=== PATIENT | female | born 1970 | race Caucasian/White ===

== ENCOUNTER → 2023-12-09 | Outpatient (CLI) | payer MEDICAID, SELFPAY ==
--- NOTE | 2023-12-09 11:28 | RAD_ITS ---
STUDY: X-RAY - CERVICAL SPINE REASON FOR EXAM: Female, 53 years old. neck pain TECHNIQUE: 4 view(s) of the cervical spine were obtained. COMPARISON: None FINDINGS: Normal anterior atlantoaxial articulation. Normal odontoid process. Slight anterior subluxation C4-5. Normal cervical lordosis. Normal vertebral bodies and endplates. There is multi-level degenerative disc disease with multilevel disc space narrowing. Normal visualized intervertebral neuroforamina. The soft tissue structures are unremarkable. RAD/Cerv Spine 2 or 3 Views IMPRESSION: Multilevel degenerative disc disease and slight anterior subluxation C4-5. Electronically Signed: Isaac Jenkins MD at 23:54 EST ,
[2023-12-09 16:05] LABS: Hematocrit 41.1 % (37-47); Mean Corp Hgb Conc 31.6 g/dL (32-36); Mean Corpuscular Hgb 28.4 pg (27.0-32.0); Mean Corpuscular Volume 89.7 fL (81-99); Mean Platelet Vol. 10.7 fl (6.2-12.0); Platelet Count 193 K/mm3 (150-450); RBC Distribution Width CV 13.7 % (11.6-14.6); RBC Distribution Width SD 45.1 fl (35.1-43.9); Red Blood Count 4.58 M/mm3 (4.2-5.4); White Blood Count 8.9 K/mm3 (4.4-11.0)
[2023-12-09 16:13] LABS: Vitamin B12 275 pg/mL (211-911)
[2023-12-09 18:28] LABS: AST(SGOT) 21 U/L (15-37); Alanine Aminotransfer ALT/SGPT 18 U/L (13-56); Albumin, Serum 3.7 g/dL (3.2-5.0); Alkaline Phosphatase 80 U/L (45-117); Anion Gap 5 (5-15); BUN 10 mg/dL (7-18); BUN/Creat Ratio 11.9 RATIO (10-20); Calcium,Total 9.2 mg/dL (8.5-10.1); Chloride 111 mmol/L (98-107); Creatinine, Serum 0.84 mg/dL (0.55-1.02); EST Glomerular Filtration Rate 75 mL/min (>60); Est Glom Filt Rate - Afr Amer 91 mL/min (>60); Folates, (Folic Acid) > 100.00 ng/mL (3.1-55.4); Globulin 3.7 g/dL (2.2-4.2); Glucose 97 mg/dL (74-106); Potassium 3.9 mmol/L (3.5-5.1); Protein, Total 7.4 g/dL (6.4-8.2); Sodium Level 139 mmol/L (136-145); Thyroid Stim Hormone (TSH) 0.74 uIU/mL (0.358-3.74)
[2023-12-12 12:09] LABS: Vitamin D 1,25-Dihydroxy 60.3 pg/mL (24.8-81.5)
[2023-12-16 10:08] LABS: Vitamin B1, Thiamine 92.5 nmol/L (66.5-200.0)
== END | disposition home or self-care (01) ==
PROVIDERS: Referring Provider Psychiatry & Neurology Neurology; Visit Provider Psychiatry & Neurology Neurology
DX: I10 Essential (primary) hypertension (principal); M54.2 Cervicalgia; R53.83 Other fatigue
CPT/HCPCS: 36415; 72040; 80053; 82607; 82652; 82746; 84425; 84443; 85027

== ENCOUNTER → 2023-12-26 | Outpatient (CLI) | payer OTHER, SELFPAY ==
--- NOTE | 2023-12-26 16:31 | MRI_ITS ---
HISTORY: MIGRAINE WITH AURA, NECK PAIN. TECHNIQUE: Multiplanar and multisequence MR images of the brain were obtained without contrast. 281 images. COMPARISON: None. FINDINGS: BRAIN PARENCHYMA: No significant signal abnormality in the brain parenchyma. No abnormal focus of restricted diffusion to suggest acute infarct. No acute intracranial hemorrhage identified. CSF SPACES: Cerebral ventricles, cortical sulci, and other extra-axial CSF spaces within normal limits in size for age. No significant midline shift or other mass effect.No extra-axial fluid collection. VASCULAR SYSTEM: Major intracranial flow voids are maintained. PARANASAL SINUSES AND MASTOID AIR CELLS: Minimal left maxillary sinus mucosal thickening without significant air fluid levels. ORBITS: Symmetric contents. MRI/Brain without Contrast IMPRESSION: Unremarkable examination. No evidence for significant signal abnormality in the brain. Electronically Signed: Ivonne Villavicencio MD at 14:06 EST ,
--- OUTSIDE RECORDS SUMMARY | 2023-12-26 20:27 | XMS RPT_ITS | CCD ---
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 Name Role Phone PriyanknoeJuan Unavailable Unavailable Payette, Tri March Unavailable Unavailab Everton Owen Unavailable Unavailable Everton Dennis B Unavailable Unavailable Payette, Tri March Unavailable Unavailab Sanjeev Enriquez Unavailable Unavailable Payette, Tri March Unavailable Unavailab Everton Owen Unavailable Unavailable Everton Dennis B Unavailable Unavailable Payette, Tri March Unavailable Unavailab Sanjeev Enriquez R Unavailable Unavailable Payette, Tri March Unavailable Unavailab Sanjeev Enriquez Unavailable Unavailable Payette, Tri March Unavailable Unavailab Sanjeev Enriquez R Unavailable Unavailable Payette, Tri March Unavailable Unavailab Sanjeev Enriquez R Unavailable Unavailable Sanjeev Vega R Unavailable Unavailable Sanjeev Vega R Unavailable Unavailable Payette, Tri March Unavailable Unavailab Shaquille Guan Unavailable Unavailab le Payette, Tri March Unavailable Unavailab EVERTON Owen Unavailable Unavailable NO FAMILY PHYSICIAN, 837 Unavailable Unavail able EVERTON DENNIS Unavailable Unavailable NO FAMILY PHYSICIAN, 837 Unavailable Unavail able ALEXANDRO WEINSTEIN Unavailable Unavailable NO, DOCTOR ON Consulting Unavailable NO, DOCTOR ON Referring Unavailable HAROON DOS SANTOS MD Admitting Unavailab HAROON Reilly MD Attending Unavailab HAROON Reilly MD Primary Care Unavailab Filippo Lynch Primary Care Provider CARRIE RUVALCABA Attending Unavaila ble POWIS, CARRIE KENIA Referring Unavaila ble FILIPPO CORRAL Primary Care Unavailable ELLISFILIPPO REAL Attending Unavailable FILIPPO CORRAL Referring Unavailable ELLISFILIPPO REAL Primary Care Unavailable Tri Richards Primary Care Provider FILIPPO CORRAL Primary Care Unavailable FILIPPO CORRAL Primary Care Unavailable POWIS, CARRIE KENIA Referring Unavaila ble POWIS, CARRIE KENIA Attending Unavaila ble FILIPPO CORRAL Primary Care Unavailable FILIPPO CORRAL Primary Care Unavailable FILIPPO CORRAL Primary Care Unavailable FILIPPO CORRAL Primary Care Unavailable PASTORINO, VERONICA SHAILESH Attending Unavaila ble PASTORINO, VERONICA SHAILESH Admitting Unavaila ble FILIPPO CORRAL Attending Unavailable TAYLOR GUTIERREZ Primary Care Unavailab le FILIPPO CORRAL Referring Unavailable FILIPPO CORRAL Primary Care Unavailable PASTORINO, VERONICA SHAILESH Attending Unavaila ble FILIPPO CORRAL Admitting Unavailable FILIPPO CORRAL Attending Unavailable FILIPPO CORRAL Primary Care Unavailable FILIPPO CORRAL Attending Unavailable FILIPPO CORRAL Primary Care Unavailable FILIPPO CORRAL Primary Care Unavailable PASTORINO, VERONICA SHAILESH Attending Unavaila ble POWIS, CARRIE K Attending Unavailable FILIPPO CORRAL Primary Care Unavailable FILIPPO CORRAL Referring Unavailable GAVI, CARRIE K Attending Unavailable FILIPPO CORRAL Primary Care Unavailable SELF, SELF Referring Unavailable GIFTY ARCOS Attending Unavailable RICKS DO~[id number], RICKS KRISTA H Prima ry Care Unavailable RICKS DO, KRISTA H Consulting Unavailab le HELMING DO, DR GOMEZ Attending Unavailab le HELMING DO, DR GOMEZ Admitting Unavailab le RICKS DO, KRISTA H Consulting Unavailab le HELMING DO, DR GOMEZ Consulting Unavailab le HELMING DO, DR GOMEZ Consulting Unavailab LEONIDES August MD Consulting Unavailable MINDA ESPINOZA, LEONIDES Aquino Consulting Unavailable RICKS DO~[id number], RICKS KRISTA H Prima ry Care Unavailable RICKS DO~[id number], RICKS KRISTA H Admit ting Unavailable RICKS DO~[id number], RICKS KRISTA H Atten ding Unavailable RICKS DO, KRISTA H Consulting Unavailab le RICKS DO, KRISTA H Consulting Unavailab onofre AVINA MD, NINI Dale Consulting Unavailable FABRICE ESPINOZA, NINI Dale Consulting Unavailable NONE, NONE Consulting Unavailable RICKS DO~[id number], [place] KRISTA H Prima ry Care Unavailable SONA DO~[id number], SONA LAQUITA Wellington Attending Unavailable SONA DO~[id number], SONA LAQUITA Wellington Admitting Unavailable NONE, NONE Consulting Unavailable SONA DO, LAQUITA N Consulting Unavailable SONA DO, LAQUITA Wellington Consulting Unavailable RICKS DO~[id number], [place] KRISTA H Admit ting Unavailable RICKS DO~[id number], [place] KRISTA H Atten ding Unavailable RICKS DO~[id number], [place] KRISTA H Prima ry Care Unavailable [place] DO, KRISTA H Consulting Unavailab le [place] DO, KRISTA H Consulting Unavailab le [place] DO~[id number], [place] KRISTA H Admit ting Unavailable RICKS DO~[id number], [place] KRISTA H Atten ding Unavailable RICKS DO~[id number], [place] KRISTA H Prima ry Care Unavailable [place] DO, KRISTA H Consulting Unavailab le [place] DO, KRISTA H Consulting Unavailab le [place] DO~[id number], [place] KRISTA H Admit ting Unavailable RICKS DO~[id number], [place] KRISTA H Atten ding Unavailable RICKS DO~[id number], [place] KRISTA H Prima ry Care Unavailable [place] DO, KRISTA H Consulting Unavailab le [place] DO, KRISTA H Consulting Unavailab onofre AVINA MD, NINI Dale Consulting Unavailable FABRICE ESPINOZA, NINI Dale Consulting Unavailable SONA DO~[id number], SONA LAQUITA Wellington Admitting Unavailable [place] DO~[id number], [place] KRISTA H Prima ry Care Unavailable RICKS DO, KRISTA H Consulting Unavailab le SONA DO~[id number], SONA LAQUITA Wellington Attending Unavailable RICKS DO, KRISTA Coffey Consulting Unavailab onofre LAMBERT MD, FINESSE Emanuel Consulting Unavailable FAUSTO ESPINOZA, FINESSE Emanuel Consulting Unavailable SONA DO, LAQUITA Wellington Consulting Unavailable SONA DO, LAQUITA Wellington Consulting Unavailable Allergies Allergy Classification Reported Allergen(s) Allergy Type Date of Onset Reaction(s) Facility (17 sources) codeine; Translations: [codeine] Drug Allergy 05-31-20 Unknown, GI Upset [facility] Repository (18 sources) Latex; Translations: [Latex] Propensity to adverse reactions (disorder) 05-31-20 16 Rash [facility] Repository (14 sources) Penicillins; Translations: [penicillins] Propensity to adverse reactions to drug (disorder) 04-25-20 [facility] Repository (1 source) sulfamethoxazole / trimethoprim; Translations: [Bactrim] Drug Allergy AOF [facility] Repository (1 source) Penicillin Drug Allergy [facility] Repository (12 sources) Sulfamethoxazole / Trimethoprim; Translations: [Unknown] Drug Allergy 06-06-20 [facility] (1 source) Amoxicillin Drug Allergy [facility] Repository Medications Current Medications Medication Drug Class(es) Dates Sig (Normalized) Sig (Original) acetaminophen 325 mg / oxyCODONE hydrochloride 5 mg oral tablet (1 source) Opioid Agonist Start: 09-22-2020 take 1 tablet by mouth every six hours as needed for pain oxyCODONE-acetamino phen (PERCOCET) 5-325 mg per tablet Indications: Chronic cholecystitis Take 1 (one) tablet by mouth every 6 (six) hours as needed for pain . 8 tablet 0 09/22/2020 Active docusate sodium 100 mg oral capsule (1 source) Start: 09-22-2020 End: 10-22-2020 take 1 capsule by mouth twice daily docusate sodium (COLACE) 100 MG capsule Take 1 (one) capsule (100 mg total) by mouth 2 (two) times a day . 60 capsule 0 09/22/2020 10/22/2020 Active ibuprofen 600 mg oral tablet (1 source) Nonsteroidal Anti-inflammatory Drug Start: 09-22-2020 End: 10-22-2020 take 1 tablet by mouth every six hours as needed ibuprofen (ADVIL,MOTRIN) 600 MG tablet Take 1 (one) tablet (600 mg total) by mouth every 6 (six) hours as needed for pain . 30 tablet 0 09/22/2020 10/22/2020 Active omeprazole 40 mg delayed release oral capsule (5 sources) Proton Pump Inhibitor Start: 04-25-2020 End: 04-25-2021 take 1 capsule by mouth once daily omeprazole (PRILOSEC) 40 MG capsule Indications: Epigastric pain Take 1 (one) capsule (40 mg total) by mouth daily . 30 capsule 11 04/25/2020 04/25/2021 Active Completed/Discontinued Medications Medication Drug Class(es) Dates Sig (Normalized) Sig (Original) calcium chloride 0.0014 meq/ml / potassium chloride 0.004 meq/ml / sodium chloride 0.103 meq/ml / sodium lactate 0.028 meq/ml injectable solution (1 source) Start: 09-22-2020 End: 09-22-2020 lactated Ringers infusion 20 ml fentaNYL 0.05 mg/ml injection (1 source) Opioid Agonist Start: 09-22-2020 End: 09-22-2020 25 mcg, Intravenous, Every 5 min PRN, Pain, Starting Lauryn 09/22/20 at 1816, For 4 doses, PACU (only) [] Do not give more than 100 mcg while in PACU. 0.5 ml HYDROmorphone hydrochloride 1 mg/ml prefilled syringe (1 source) Opioid Agonist Start: 09-22-2020 End: 09-22-2020 0.5 mg, Intravenous, Every 5 min PRN, Pain, Starting Lauryn 09/22/20 at 1848, For 6 doses, PACU (only) [] Give if fentanyl not effective or not ordered. [] Do not give more than 3 mg total. 4 ml labetalol hydrochloride 5 mg/ml cartridge (1 source) beta-Adrenergic Rox Start: 09-22-2020 End: 09-22-2020 5 mg, Intravenous, Every 5 min PRN, SBP greater than 160 or DBP greater than 90, Starting Lauryn 09/22/20 at 1816, For 4 doses, PACU (only) [] Do not give more than 20 mg total. [] Hold for HR less than 50. lidocaine-aloe vera-collagen 2 %-1 % -1 % Gel (6 sources) Start: 04-25-2020 End: 09-14-2020 lidocaine-aloe vera-collagen 2 %-1 % -1 % Gel Bio[facility] #[id number] Please dispense 240g. Baclofen 5%, diclofenac 3%, gabapentin 6%, lidocaine 2%, Prilocaine 2% Apply 1-2g QID PRN Substitution OK. 0 04/25/2020 09/14/2020 Discontinued (Patient Discharge) Problems Active Problems Problem Classification Problem Date Documented Date Episodic/Chronic Conditions associated with dizziness or vertigo (1 source) Conditions associated with dizziness or vertigo Onset: 02-11-2018 Immunizations and screening for infectious disease (1 source) Encounter for screening for human papillomavirus (HPV); Translations: [ENC SCREENING HUMAN PAPILLOMAVIRUS] Onset: 05-20-2023 Episodic Lymphadenitis (3 sources) Localized enlarged lymph nodes; Translations: [LOCALIZED ENLARGED LYMPH NODES] Onset: 05-10-2023 Episodic Other eye disorders (1 source) Bilateral vitreous floaters; Translations: [Vitreous floaters of both eyes] Onset: 05-31-2016 05-31-2016 Other nervous system disorders (3 sources) Polyneuropathy, unspecified; Translations: [POLYNEUROPATHY UNSPECIFIED] Onset: 05-10-2023 Chronic Other screening for suspected conditions (not mental disorders or infectious disease) (4 sources) Encounter for screening mammogram for malignant neoplasm of breast; Translations: [Encounter for screening for lipoid disorders] Onset: 03-05-2023 Episodic Other upper respiratory disease (2 sources) Unspecified disorder of nose and nasal sinuses; Translations: [UNS DISORDER NOSE AND NASAL SINUSES] Onset: 07-19-2023 Episodic Other upper respiratory disease (1 source) Deviated nasal septum; Translations: [DEVIATED NASAL SEPTUM] Onset: 07-23-2023 Episodic Ovarian cyst (2 sources) Cyst of left ovary; Translations: [Left ovarian cyst] Residual codes; unclassified (1 source) Postoperative state; Translations: [Post-operative state] Onset: 10-04-2020 10-04-2020 Systemic lupus erythematosus and connective tissue disorders (1 source) Systemic involvement of connective tissue, unspecified; Translations: [SYSTEMIC INVLV CONNECTIVE TISS UNS] Onset: 03-05-2023 Chronic Thyroid disorders (1 source) Nontoxic single thyroid nodule; Translations: [NONTOXIC SINGLE THYROID NODULE] Onset: 03-04-2023 Chronic Unclassified (2 sources) Cervicalgia / M54.2(ICD-10) Onset: 02-11-2018 Unclassified (1 source) Unknown / UNK(Unknown) Onset: 04-10-2017 Unclassified (3 sources) Patient encounter status; Translations: [Screen for STD (sexually transmitted disease)] Onset: 05-15-2020 05-15-2020 Past or Other Problems Problem Classification Problem Date Documented Da te Episodic/Chronic Abdominal pain (20 sources) Epigastric pain; Translations: [Pain in pelvis] Onset: 04-25-2020 04-25-2020 Episodic Biliary tract disease (5 sources) Chronic cholecystitis; Translations: [Chronic cholecystitis] Onset: 09-13-2020 09-14-2020 Episodic Conditions associated with dizziness or vertigo (8 sources) Vertigo; Translations: [Vertigo] Onset: 02-11-2018 05-09-2020 Episodic Malaise and fatigue (3 sources) Other fatigue; Translations: [OTHER FATIGUE] Onset: 02-28-2023 Episodic Nonspecific chest pain (3 sources) Other chest pain; Translations: [OTHER CHEST PAIN] Onset: 02-28-2023 Episodic Other eye disorders (1 source) Tear film insufficiency; Translations: [Dry eye syndrome] Onset: 05-31-2016 05-31-2016 Episodic Other female genital disorders (10 sources) Abnormal uterine bleeding; Translations: [Abnormal uterine bleeding (AUB)] Onset: 05-15-2020 Resolved: 06-06-2020 05-15-2020 Chronic Other female genital disorders (9 sources) History of abnormal cervical Papanicolaou smear ; Translations: [H/O abnormal cervical Papanicolaou smear] Onset: 05-15-2020 06-06-2020 Episodic Results Test Name Value Interpretation Reference Range Facil ity Vital Signs Date Time Vital Sign Value Performing Clinician Gricel bernstein 09-22-2020 19:35-0500 BP Diastolic 92 mm[Hg] [facility] 09-22-2020 19:35-0500 BP Systolic 106 mm[Hg] [facility] 09-22-2020 19:35-0500 Pulse (Heart Rate) 68 /min [facility] 09-22-2020 19:35-0500 Pulse Oximetry 100 % [facility] 09-22-2020 19:35-0500 Respiratory Rate 22 /min [facility] 09-22-2020 18:35-0500 Body Temperature 97 [degF] [facility] 09-22-2020 14:40-0500 BMI (Body Mass Index) 24.33 kg/m2 [facility] 09-22-2020 14:40-0500 Body weight 60.33 kg [facility] 09-22-2020 14:40-0500 Height 157.5 cm [facility] 09-13-2020 13:10-0500 BMI (Body Mass Index) 24.33 kg/m2 [facility] 09-13-2020 13:10-0500 Body Temperature 98.4 [degF] [facility] 09-13-2020 13:10-0500 Body weight 60.33 kg [facility] 09-13-2020 13:10-0500 BP Diastolic 83 mm[Hg] [facility] 09-13-2020 13:10-0500 BP Systolic 121 mm[Hg] [facility] 09-13-2020 13:10-0500 Height 157.5 cm [facility] 09-13-2020 13:10-0500 Pulse (Heart Rate) 81 /min [facility] 06-15-2020 13:57-0400 Body Temperature 97.7 [degF] [facility] 06-15-2020 13:57-0400 BP Diastolic 87 mm[Hg] [facility] 06-15-2020 13:57-0400 BP Systolic 138 mm[Hg] [facility] 06-15-2020 13:57-0400 Pulse (Heart Rate) 98 /min [facility] 06-06-2020 15:55-0400 BMI (Body Mass Index) 23.87 kg/m2 [facility] 06-06-2020 15:55-0400 Body Temperature 98.6 [degF] [facility] 06-06-2020 15:55-0400 Body weight 59.19 kg [facility] 06-06-2020 15:55-0400 BP Diastolic 86 mm[Hg] [facility] 06-06-2020 15:55-0400 BP Systolic 123 mm[Hg] [facility] 06-06-2020 15:55-0400 Height 157.5 cm [facility] 06-06-2020 15:55-0400 Pulse (Heart Rate) 71 /min [facility] 06-06-2020 15:55-0400 Pulse Oximetry 98 % [facility] 05-09-2020 15:53-0400 BMI (Body Mass Index) 23.56 kg/m2 [facility] 05-09-2020 15:53-0400 Body Temperature 98.29 [degF] [facility] 05-09-2020 15:53-0400 Body weight 60.33 kg [facility] 05-09-2020 15:53-0400 BP Diastolic 81 mm[Hg] [facility] 05-09-2020 15:53-0400 BP Systolic 133 mm[Hg] [facility] 05-09-2020 15:53-0400 Height 160 cm [facility] 05-09-2020 15:53-0400 Pulse (Heart Rate) 77 /min [facility] 05-09-2020 15:53-0400 Pulse Oximetry 96 % [facility] 04-25-2020 10:45-0400 BMI (Body Mass Index) 23.03 kg/m2 [facility] 04-25-2020 10:45-0400 Body Temperature 97.81 [degF] [facility] 04-25-2020 10:45-0400 Body weight 58.97 kg [facility] 04-25-2020 10:45-0400 BP Diastolic 82 mm[Hg] [facility] 04-25-2020 10:45-0400 BP Systolic 136 mm[Hg] [facility] 04-25-2020 10:45-0400 Height 160 cm [facility] 04-25-2020 10:45-0400 Pulse (Heart Rate) 78 /min [facility] 04-25-2020 10:45-0400 Respiratory Rate 16 /min [facility] Encounters Encounter Date Encounter Type Care Provider Facility Start: 07-19-2023 End: 07-20-2023 ambulatory RAMBO RICKS DO~[id number] Facility:[facility] Start: 06-20-2023 End: 06-21-2023 ambulatory SONA MAGALLANES DO~[id number] Facility:[facility] Start: 05-20-2023 Encounter for gynecological examination (general) (routine) without abnormal findings SONAOCTAVIA MAGALLANES DO~[id number] [facility] Start: 05-16-2023 End: 05-16-2023 ambulatory NONE NONE Facility:[facility] Start: 05-16-2023 End: 05-16-2023 Encounter for gynecological examination (general) (routine) without abnormal findings NONE NONE Facility:[facility] Start: 05-10-2023 End: 05-11-2023 ambulatory RAMBO RICKS DO~[id number] Facility:[facility] Start: 02-28-2023 End: 03-01-2023 ambulatory RAMBO RICKS DO~[id number] Facility:[facility] Start: 01-12-2021 ambulatory SELF SELF Facility:[facility] Start: 01-04-2021 End: 01-04-2021 Orders Only Gifty Moreno Work Phone: [facility] Start: 10-04-2020 End: 10-04-2020 Patient encounter procedure FILIPPO CORRAL [facility] Start: 09-22-2020 End: 09-22-2020 Patient encounter procedure FILIPPO CORRAL [facility] Start: 09-22-2020 End: 09-22-2020 Subsequent hospital visit by physician Veronica Burns Work Phone: [facility] Periop Procedures Date Procedure Procedure Detail Performing Clinician Start: 07-22-2020 Us transvaginal Eula Ruvalcaba Work Phone: Start: 07-14-2020 Ct abdomen w/o contr ast material Filippo Corral Work Phone: Start: 05-09-2020 Chlamydia trachomati s rRNA assay Carrie Ruvalcaba Work Phone: Start: 05-09-2020 Human papilloma viru s 16+18+31+33+35+39+45+51+52+ 56+58+59+68 DNA [Presence] in Cervix by Probe with signal amplification Carrie Ruvalcaba Work Phone: Start: 05-09-2020 Iadna trichomonas [facility] amplified probe tech Carrie Ruvalcaba Work Phone: Start: 05-09-2020 Neisseria gonorrhoea e nucleic acid detection Carrie Ruvalcaba Work Phone: Start: 05-09-2020 Microscopic observat ion [Identifier] in Cervix by Cyto stain Carrie Ruvalcaba Start: 06-29-2019 Urinalysis DOCTOR NO Plan of Treatment Date Care Activity Detail Author Start: 05-09-2025 Screening for malignant neoplasm of cervix Pap Smear [facility] Start: 10-04-2020 End: 10-04-2020 Telemedicine 10/04/2020 Telemedicine General Surgery Veronica Burns DO [address] [facility] [address] [id number] [phone] [facility] Start: 09-22-2020 End: 09-22-2020 Hospital Encounter [facility] Payers Date Payer Category Payer Medicaid [facility] MANAGED [facility] MEDICAID COMMUNITY PLAN xxxxxxxxx 2019-Present xxxxxxxxx [id number] [address] [facility] MANAGED [facility] MEDICAID COMMUNITY PLAN [id number] 2019-Present [id number] 2019 Medicaid [id number] 2017 Unknown 1970 Unknown [id number] 2.16.840.1.900151.3.579.2.902 1970 Unknown [id number] 2.16.840.1.481052.3.579.2.902 1970 Unknown [id number] 2.16.840.1.128355.3.579.2.900 1970 Unknown [id number] 2.16.840.1.666894.3.579.2.900 1970 Unknown [id number] 2.16.840.1.062184.3.579.2.900 1970 Unknown [id number] 2.16.840.1.525695.3.579.2.900 1970 Unknown [id number] 2.16.840.1.843654.3.579.2.900 1970 Unknown [id number] 2.16.840.1.517705.3.579.2.902 1970 Unknown [id number] 2.16.840.1.417706.3.579.2.903 1970 Unknown [id number] 2.16.840.1.535015.3.579.2.903 1970 Unknown [id number] 2.16.840.1.075535.3.579.2.903 1970 Unknown [id number] 2.16.840.1.114648.3.579.2.903 1970 Unknown [id number] 2.16.840.1.340201.3.579.2.903 1970 Unknown [id number] 2.16.840.1.613710.3.579.2.903 1970 Unknown [id number] 2.16.840.1.951555.3.579.2.903 1970 Unknown [id number] 2.16.840.1.877845.3.579.2.594 1970 Unknown [id number] 2.16.840.1.825569.3.579.2.419 1970 Unknown [id number] 2.16.840.1.623255.3.579.2.419 1970 Unknown [id number] 2.16.840.1.623342.3.579.2.419 1970 Unknown [id number] 2.16.840.1.237328.3.579.2.419 1970 Unknown [id number] 2.16.840.1.366398.3.579.2.419 1970 Unknown [id number] 2.16.840.1.245670.3.579.2.419 1970 Unknown [id number] 2.16.840.1.249826.3.579.2.419 Unknown [id number] Social History Date Type Detail Facility Start: 04-25-2020 End: 10-04-2020 Tobacco smoking status FLIS Current every day smoker [facility] Start: 04-25-2020 End: 10-04-2020 Cigarettes smoked current (pack per day) - Reported [facility] Start: 04-25-2020 End: 10-04-2020 Alcohol intake Lifetime non-drinker (finding) [facility] Start: 04-25-2020 History SDOH Alcohol Frequency 1 [facility] Sex Assigned At Not on file [facility] Exposure to SARS-CoV -2 (event) Not sure [facility] Start: 06-06-2020 End: 10-04-2020 Tobacco use and exposure Never used [facility] Exposure to SARS-CoV -2 (event) Unable to assess [facility] Clinical Note 05-12-2023 Note Date & Type Note Facility 05-12-2023 Note PROCEDURE: ULTRASOUN D NECK, 05/10/2023 4:23 PM EDT CLINICAL INDICATIONS: Palpable neck mass for 2 days. COMPARISON: None. TECHNIQUE: Limited sonogram, grayscale and color assessment. FINDINGS: 0.8 x 0.6 x 0.3 cm echogenic solid abnormality is identified within the subcutaneous tissues of the right posterior cervical thoracic junction. No internal vascularity is evident. No posterior features are seen. It is isoechoic with subcutaneous fat. Subcutaneous lipoma favored in the appropriate clinical setting. IMPRESSION: 0.8 cm echogenic solid abnormality within the subcutaneous tissues of the right posterior cervical thoracic junction. Lipoma favored in the appropriate clinical setting. Correlation with clinical growth pattern. [facility] Clinical Note 05-12-2023 Note Date & Type Note Facility 05-12-2023 Note PROCEDURE: ULTRASOUN D GROIN COMPLETE, 05/10/2023 4:24 PM EDT CLINICAL INDICATIONS: Bilateral inguinal lymphadenopathy. COMPARISON: None. TECHNIQUE: Inguinal sonogram, grayscale and color assessment. FINDINGS: Standout mass or fluid collection is not identified. There is no sign of adenopathy. Convincing sonographic abnormality to correspond with the clinical findings is not evident. IMPRESSION: . 1. No pathology identified. 2. Imaging findings are negative. Further management should be based on clinical findings [facility] Clinical Note 02-28-2023 Note Date & Type Note Facility 02-28-2023 Note PROCEDURE: ULTRASOUN D THYROID, 02/28/2023 1:19 PM EDT CLINICAL INDICATIONS: Neck fullness on clinical exam, atypical chest pain. COMPARISON: None. TECHNIQUE: Thyroid sonogram, jamil-scale and color assessment. FINDINGS: Right lobe: 4.9 x 1.9 x 1.4 cm. Left lobe: 5.1 x 1.9 x 1.4 cm. Isthmus: 0.2 cm. Normal thyroid size and morphology. Slight heterogeneous echo pattern is seen. Normal vascularity. A 0.3 cm benign colloid cyst is seen in the mid left lobe. TR 1, not meeting criteria for FNA biopsy or follow-up. IMPRESSION: 1. Normal size and vascularity of the thyroid. 2. Slight thyroid heterogeneity. 3. 0.3 cm TR 1 middle third left lobe thyroid nodule not meeting criteria for FNA biopsy or follow-up. The [employer] TI-RADS committee's white paper recommendations for thyroid lesions classified as TR 1 (Benign) not meeting criteria for FNA biopsy or follow-up. J. Am Noe Radiol 2017;14:587-595. 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 Advance Directives and Living Will Documents on File Type Date Recorded 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 Advance Directives and Livin g Will 05/19/2020 3:48 PM Documents on File Type Date Recorded 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 Advance Directives and Livin g Will 07/14/2020 4:37 PM Documents on File Type Date Recorded 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 Advance Directives and Livin g Will 07/22/2020 4:37 PM Documents on File Type Date Recorded 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 Advance Directives and Livin g Will 07/22/2020 4:37 PM Documents on File Type Date Recorded 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 Advance Directives and Livin g Will 09/22/2020 4:37 PM Documents on File Type Date Recorded 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 Advance Directives and Livin g Will 09/22/2020 4:37 PM Reason for Referral Status Reason Specialty Diagnoses / Procedures Referred By Contact Referred To Contact Authorized Obstetrics and Gynecology Diagnoses Pelvic pain Filippo Corral, DO [address] [place] [address] Status Reason Specialty Diagnoses / Procedures Referred By Contact Referred To Contact Authorized Central Scheduling Diagnoses Pelvic pain H/O abnormal cervical Papanicolaou smear Procedures US Pelvic Transabdominal and Transvaginal Powis, Carrie Craft, DO [address] [place] [address] Central Scheduling [address] [place] [address] Status Reason Specialty Diagnoses / Procedures Referred By Contact Referred To Contact Pending Review Obstetrics and Gynecology Diagnoses Left ovarian cyst Procedures US Pelvic Transabdominal and Transvaginal Powis, Carrie Craft, DO [address] [place] [address] Status Reason Specialty Diagnoses / Procedures Referred By Contact Referred To Contact New Request Radiology Diagnoses Abdominal pain, unspecified abdominal location Procedures CT Abdomen Without Contrast Filippo Corral, DO [address] [place] [address] Status Reason Specialty Diagnoses / Procedures Referred By Contact Referred To Contact Closed Central Scheduling Diagnoses Abdominal pain, unspecified abdominal location Procedures CT Abdomen Without Contrast Filippo Corral, DO [address] [place] [address] Central Scheduling [address] [place] [address] Status Reason Specialty Diagnoses / Procedures Referred By Contact Referred To Contact Pending Review Central Scheduling Diagnoses Left ovarian cyst Procedures US Pelvic Transabdominal and Transvaginal YadirayelenaCarrie Kenia, DO [address] [place] [address] Central Scheduling [address] [place] [address] History of Present Illness * Filippo Corral, DO - 04/25/2020 12:47 PM EDT [facility] Patient Name:Francesca Temple Date:04/25/20 Patient :1970 Patient Age:50 y.o. CC: Chief Complaint Patient presents with Abdominal Pain ASSESSMENT / PLAN Problem List Items Addressed This Visit Other Epigastric pain - Primary Suspected recurrent GERD, but cannot rule out cholecystitis. Check labs today. Start omeprazole. Reevaluate at follow-up. Relevant Medications omeprazole (PRILOSEC) 40 MG capsule Other Relevant Orders CBC and differential Comprehensive Metabolic Panel Lipase Pelvic pain Cannot rule out ovarian cyst, fibroid, or sequela from prior high-grade cervical dysplasia/gynecologic procedures. Cannot rule out ventral hernia, diverticular disease, or other colitis. Patient is due for screening colonoscopy, but she wishes to wait on GI referral at this time. She will reestablish care with gynecology for continued work-up. Relevant Orders Ambulatory referral to Obstetrics / Gynecology Return in about 6 weeks (around 06/06/2020) for Follow Up. We discussed the natural history of this condition, differential diagnoses, and treatment options. We discussed appropriate dietary modifications. The patient was instructed to call if they developedany worsening symptoms, melena, or hematochezia. SUBJECTIVE: Patient with past medical history of GERD, high-grade cervical dysplasia, right sided tubal , and 2 C-sections presents complaining of a 7 to 8-month history of epigastric worsening discomfort and bloating. She is not currently using antacid therapy. The pain is described as fullness. She also recently reports acute pain with bulging of the left lower quadrant that went away after a few minutes of rest and external pressure. The pain is by oral intake, especially acidic foods. The patient denies any melena or hematochezia. She reports stools have been mucousy. She reports cycling between constipation and diarrhea. The patient denies any nausea or vomiting. The patient reports interm ittent subjective fevers, but denies chills and night sweats. The patient denies any cough, chest pain, or chest tightness. The patient has tried cutting many different foods out of her diet including grains, gluten, pork, dairy, and others without significant improvement. The patient has had a history of indigestion in the past. All systems reviewed were negative unless otherwise noted. The patient s past medical history, allergies, medication list, social history, and family medical history were documented, updated, and reviewed in the chart. OBJECTIVE: Vitals: BP 136/82 Pulse 78 Temp 97.8 F (36.6 C) Resp 16 Ht 5' 3 Wt 59 kg (130 lb) BMI 23.03 kg/m General: alert, cooperative, well appearing, in no apparent distress. Head: Head is symmetric, normocephalic without evidence of trauma or deformity. Eyes: Pupils are equally round and reactive to light with accommodation. The extra-ocular movementsare intact. The lids are without swelling, lesions, or drainage. The conjunctiva is clear and noninjected. ENT: The septum is midline. The maxillary and frontal sinuses are nontender to palpation. The nasalmucosa is pink without purulent drainage. The tongue and mucous membranes are pink and moist without lesions. The dentition is generally in good health. The pharynx is non-erythematous without exudates. CV: The heart sounds are regular in rate and rhythm. There is a normal S1 and S2. There or no murmurs, rubs, or gallops. Distal pulses are intact and equal. Lungs: Inspiratory and expiratory efforts are full and unlabored. Lung sounds are clear and equal to auscultation throughout all lung bergeron without wheezing, rales, or rhonchi. GI: The abdomen is soft with mild epigastric tenderness. Bowel sounds are present in all 4 quadrants. There is no hepatosplenomegaly or other masses. There is no rebound or guarding. There is no CVA or suprapubic tenderness. Anderson's test is positive. Extremities: There is no clubbing, cyanosis, or edema. 2+ peripheral pulses Franklyn Corral DO documented in this encounter* Carrie Ruvalcaba DO - 05/09/2020 3:30 PM EDT AIRCRAFT DISPATCHER VISIT Assessment/Plan: 50 y.o. presents for pelvic pressure/spotting Problem Abnormal Uterine Bleeding (Aub) - Patient c/o pink spotting 02/2020, denies vaginal bleeding currently - S/p endometrial ablation 2016 and denies bleeding after until 02/2020, labs ordered to assess if PMB (FSH, LH, estradiol) - GC/C/T pending - Pap/HPV pending (see below) Pap Smear for Cervical Cancer Screening - Patient reports h/o severe cervical dysplasia - H/o CKC and LEEP per patient - Last pap 2017 and normal per patient (no records available) - Pap and HPV testing pending - Prior records requested ([facility] per patient) Pelvic Pain - Patient c/o pelvic pressure x 6 months - Pelvic US ordered to assess AIRCRAFT DISPATCHER etiology Patient to return after US/labs to discuss results (one month follow-up) Carrie Ruvalcaba DO CC: Chief Complaint Patient presents with Pelvic Pain Lower abdomen and pelvic pressure for past 6 months. Feels like a tearing insude. HPI: 50 y.o. presents for pelvic pressure/spotting Patient c/o pelvic pressure low/deep in her pelvis for the past six months. States it is intermittent. Sometimes feels like tearing. Denies aggravating or alleviating factors. States she has a history of severe cervical dysplasia in the . She reports a h/o LEEP and CKC.States her last pap smear was ~2017 and was normal. She is s/p endometrial ablation in 2016. She denies vaginal bleeding since her ablation until February 2020 when she developed pink spotting with an odor. She denies vaginal discharge or bleeding currently. She is not sexually active. She denies a h/o STI. She is s/p RSO for a prior ectopic . Denies hot flashes. Review of Systems - Const: Negative for headache, fevers, chills Appian Developer: Negative for vaginal bleeding, vaginal discharge : Negative for dysuria, hematuria MSK: Negative for back pain GI: Negative for changes in bowel function or abdominal pain Primary Care Physician: Filippo Corral DO Obstetric History: OB History Para Term AB Living 9 5 2 3 4 4 SAB TAB Ectopic Multiple Live Births 2 1 6 # Outcome Date GA Lbr Akshat/2nd Weight Sex Delivery Anes PTL Lv 9 2004 CÉSAR 8 Ectopic Comments: S/p R salpingoophorectomy 7 SAB Comments: D&C 6 SAB Comments: No D&C 5 AB 18w0d Vag-Spont ND Comments: Passed 20 minutes after 4 22w0d ND Comments: Passed 2 hours after 3 Term CÉSAR 2 CS-LTranv CÉSAR 1 Term CS-LTranv CÉSAR Gynecologic History: Menstrual History: Age of menarche: 13yo S/p endometrial ablation 2016 (no bleeding until 02/2020 = pink spotting) Pap History: History of abnormal pap smears: Yes - (s/p LEEP and CKC between 1992 and 1994 per patient) Last pap: October 2017 (normal per patient) Sexual History: Currently is not sexually active Sexual preference is male Denies history of STIs Past Medical History: Diagnosis Date GERD (gastroesophageal reflux disease) H/O abnormal cervical Papanicolaou smear History of severe dysplasia per patient, s/p LEEP and CKC per patient Past Surgical History: Procedure Laterality Date CERVICAL CONIZATION W/ LASER SECTION, LOW TRANSVERSE x 2 1988 and 1989 ENDOMETRIAL ABLATION 2016 for [facility] LEEP RIGHT OOPHORECTOMY 1996 for ectopic Outpatient Medications as of 05/09/2020 Medication Sig lidocaine-aloe vera-collagen 2 %-1 % -1 % Gel BioMed #[id number] Please dispense 240g. Baclofen 5%, diclofenac 3%, gabapentin 6%, lidocaine 2%, Prilocaine 2% Apply 1- 2g QID PRN Substitution OK. omeprazole (PRILOSEC) 40 MG capsule Take 1 (one) capsule (40 mg total) by mouth daily . (Patient not taking: Reported on 05/09/2020 .) Allergies Allergen Reactions Codeine Unknown Penicillins Latex Rash Social History Tobacco Use Smoking status: Current Every Day Smoker Packs/day: 1.00 Smokeless tobacco: Never Used Substance Use Topics Alcohol use: Never Frequency: Never Drug use: Yes Types: Marijuana Objective: BP 133/81 Pulse 77 Temp 98.3 F (36.8 C) Ht 5' 3 Wt 60.3 kg (133 lb) LMP 02/19/2020 SpO2 96% BMI 23.56 kg/m Body mass index is 23.56 kg/m . Physical Exam: General: Alert, well-appearing, cooperative, in no apparent distress Lungs: Unlabored respirations Abdomen: Soft, nontender, nondistended Gynecologic: External: Normal appearing vulva with no masses, tenderness or lesions Urethra: No masses or erythema Vagina: Atrophic mucosa, no abnormal discharge or lesions or vaginal bleeding Cervix: No grossly visible lesions or cervical motion tenderness Uterus: Mobile, no masses, NTTP Adnexa: No masses palpable, nontender Extremities: No redness or tenderness in the calves, no edema Skin: Normal coloration and turgor, no rashes Neurologic: Alert, oriented, normal speech, no focal findings noted documented in this encounter* Carrie Ruvalcaba DO - 06/06/2020 3:30 PM EDT Return Appian Developer Office Visit Assessment/Plan: 50 y.o. who presents pelvic pain follow-up Problem Abdominal Pain - Patient c/o vague abdominal pain (previously pelvic pain, now RUQ pain) - Discussed different etiologies of pelvic pain: AIRCRAFT DISPATCHER vs vs GI vs MSK - Pelvic US 05/19/2020 Uterus 9.3 x 5.1 x 4.8 cm with suspected posterior fibroid 2.9 x 2.0 x 2.8 cm ES 6mm R ovary: Surgically absent L ovary: 3.6 x 3.2 x 2.7 cm simple appearing cyst - Low suspicion of AIRCRAFT DISPATCHER etiology due to nature/location of pain and US findings - Repeat US in 8-10 weeks to reassess cyst (US ordered 06/06/2020) - Suspect possible GI etiology of pain as patient c/o recent bowel changes, recommended f/u with PCP for further imaging vs GI referral - patient agreeable with plan, states will call PCP to set up appointment History of Abnormal Cervical Pap Smear - Patient reports h/o severe cervical dysplasia - H/o CKC and LEEP per patient - Last pap 2017 and normal per patient (previous records requested 06/06/2020) - Pap negative, HPV negative 05/09/2020 Abnormal Uterine Bleeding (Aub) (Resolved) - S/p endometrial ablation 2016 and denies bleeding after until 02/2020 (pink spotting) - Perimenopausal per labs (FSH 45.3, LH 40.4, estradiol 56) - ES 6mm on pelvic US 05/19/2020 - GC/C/T negative 05/09/2020 - Pap negative, HPV negative 05/09/2020 - Patient denies additional vaginal bleeding/spotting after February 2020, no further work-up indicated at this time, patient to notify office of any changes Pelvic US 07/2020 Follow-up 04/2021 for annual AIRCRAFT DISPATCHER exam, sooner JUAN Ruvalcaba DO History of Present Illness: 50 y.o. who presents pelvic pain follow-up Patient continues to c/o pain. States the pain moves and is now located in her RUQ. States pain started about 6 months ago and was located in her upper/central abdomen. States it felt like a smalltremor in her diaphragm. Pain then moved to her L then R LQ and has now been present only in her RUQ for the past few weeks. States pain occurs several times per week and occurs with movement (bending, turning, etc). She describes it as a pulsatile pain that lasts only seconds-minutes and then resolves spontaneously. States she feels like there is a bulge in the her RUQ. She also c/o recent bowel changes. States she will be constipated for a few days and then have diarrhea. She reports changing her diet, cutting out bread, red meat, and dairy but the pain is unchanged. States the pain is notassociated with eating or BMs. Reports decreased appetite recently. Denies significant weight loss. She denies any vaginal bleeding or spotting since one occurrence in February 2020. S/p endometrial ablation 2016. She currently denies any pelvic pain. Denies abnormal vaginal discharge. Review of Systems - Const: Negative for headache, fevers, chills Appian Developer: Negative for vaginal bleeding, vaginal discharge : Negative for dysuria, hematuria MSK: Negative for back pain GI: Positive for changes in bowel function or abdominal pain Physical Exam: BP 123/86 (BP Location: Left arm, Patient Position: Sitting, BP Cuff Size: Adult) Pulse 71 Temp98.6 F (37 C) (Oral) Ht 5' 2 Wt 59.2 kg (130 lb 8 oz) SpO2 98% No BMI 23.87 kg/m General: Alert, well appearing, in no apparent distress Lungs: Unlabored respirations Abdomen: Soft, nontender to palpation, nondistended, no palpable masses Extremities: No edema Skin: Normal coloration and turgor, no rashes Appian Developer: Deferred documented in this encounter* Filippo Corral, - 06/15/2020 2:35 PM EDT [facility] Patient Name:Francesca Temple Date:06/15/20 Patient :1970 Patient Age:50 y.o. CC: Chief Complaint Patient presents with Abdominal Pain x several months ASSESSMENT / PLAN Problem List Items Addressed This Visit Other Abdominal pain Migrating severe intermittent abdominal pain including epigastric, right upper quadrant, right lower quadrant, and left lower quadrant ongoing for several months, associated with bulging and acute pain. Described characteristics consistent with multiple sites of ventral hernia. Differential diagnosis also includes IBS, IBD, and endometriosis. Not improved completely with omeprazole. Recently nondiagnostic pelvic ultrasound by pickling tank operator. Recently normal CMP, lipase, and CBC. We will obtain noncontrast CT scan of the abdomen and pelvis to rule out structural abnormality. GI versus general surgery referral will be considered pending imaging results. Relevant Orders CT Abdomen Without Contrast No follow-ups on file. We discussed the natural history of this condition, differential diagnoses, and treatment options. We discussed appropriate dietary modifications. The patient was instructed to call if they developedany worsening symptoms, melena, or hematochezia. SUBJECTIVE: Patient with past medical history of GERD, high-grade cervical dysplasia, right sided tubal , and 2 C-sections presents in follow up 7 weeks after initial evaluation for epigastric fullness and bloating. Patient has been taking omeprazole, which has dampened severity of symptoms, but not completely resolve them. Patient now describes pain as intermittent and exacerbated by certain bending or twisting positions, as well as physical exertion. Location changes among epigastric, right upper quadrant, right lower quadrant, and left lower quadrant. When it happens, she is able to push on the site of pain and she senses a sort of tissue reduction with relief of pain. The pain is not changed by oral intake. The patient denies any melena or hematochezia. She reports stools have been mucousy from time to time. She reports cycling between constipation and diarrhea for years. The patient denies any nausea or vomiting. The patient reports intermittent subjective fevers, but denies chills and night sweats. The patient denies any cough, chest pain, or chest tightness. The patient has tried cutting many different foods out of her diet including grains, gluten, pork, dairy, and others without significant improvement. The patient has had a history of indigestion in the past. All systems reviewed were negative unless otherwise noted. The patient s past medical history, allergies, medicat ion list, social history, and family medical history were documented, updated, and reviewed in the chart. OBJECTIVE: Vitals: BP 138/87 Pulse 98 Temp 97.7 F (36.5 C) General: alert, cooperative, well appearing, in no apparent distress. Head: Head is symmetric, normocephalic without evidence of trauma or deformity. Eyes: Pupils are equally round and reactive to light with accommodation. The extra-ocular movementsare intact. The lids are without swelling, lesions, or drainage. The conjunctiva is clear and noninjected. ENT: The septum is midline. The maxillary and frontal sinuses are nontender to palpation. The nasalmucosa is pink without purulent drainage. The tongue and mucous membranes are pink and moist without lesions. The dentition is generally in good health. The pharynx is non-erythematous without exudates. CV: The heart sounds are regular in rate and rhythm. There is a normal S1 and S2. There or no murmurs, rubs, or gallops. Distal pulses are intact and equal. Lungs: Inspiratory and expiratory efforts are full and unlabored. Lung sounds are clear and equal to auscultation throughout all lung bergeron without wheezing, rales, or rhonchi. GI: The abdomen is soft with mild tenderness upon deep palpation of epigastric region, right upper quadrant, and bilateral lower quadrants. Bowel sounds are present in all 4 quadrants. There is no hepatosplenomegaly or other masses. There is no rebound or guarding. There is no CVA or suprapubic tenderness. Extremities: There is no clubbing, cyanosis, or edema. 2+ peripheral pulses Franklyn Corral DO documented in this encounter* Veronica Burns DO - 09/14/2020 9:02 AM EST [facility] General Surgery [facility] [phone] History and Physical Exam: Patient: Francesca Temple CSN: [id number] : 1970 Date: 09/14/20 Reason for Visit: Chief Complaint Patient presents with Consult RUQ abd pain associate with nausea and vomiting. Assessment and Plan: Problem List Chronic cholecystitis - Primary CT AP without any abnormality other than gallstones. She does have a large amount of gallstones. I would recommend Lx cholecystectomy for her. Plan to look for occult hernias not seen on CT at time of laparoscopy. I discussed with patient post-op narcotic regimen, the patient will receive 2 days of Percocet 5/325 mg for 8 pills total alternating with Ibuprofen. After this is complete, we will switch to a regimen of Tylenol and Ibuprofen. Patient will be on lifting restrictions post-operatively, nothing >15 lbs for 4 weeks. After that time he or she will be able to gradually start lifting more than that. Relevant Orders Case Request Operating Room: Laparoscopic cholecystectomy Abdominal pain Relevant Orders Case Request Operating Room: Laparoscopic cholecystectomy CBC (Completed) Comprehensive Metabolic Panel (Completed) All risks and benefits of surgery have been explained to the patient in detail including risks of stroke, heart attack, adverse reaction to anesthesia, risk of bleeding, infection, injury to nearby structures. I spent 30 minutes with this patient, with more than 50% of the time devoted to discussing symptoms, examination, data review and counseling the patient about diagnosis, treatment approach and prognosis. Veronica Burns DO History of Present Illness: Francesca Temple is a 50 y.o. y/o female who presents to the office today with right upper quadrant abdominal pain. She states she occasionally has pain in the right upper quadrant especially when she coughs hard and then she has severe pain that doubles her over in the right upper abdomen. She states this has been going on for 2 to 3 years and she will have to press on the area and stretch her to go away. 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 She also states she does not havean appetite for the same period of time, has frequent pain after eating. Review of Systems: - General ROS: negative for - chills, fatigue or fever ENT ROS: negative for - headaches or visual changes Hematological and Lymphatic ROS: negative for - bleeding problems or blood clots Respiratory ROS: no cough, shortness of breath, or wheezing Cardiovascular ROS: no chest pain or dyspnea on exertion Gastrointestinal ROS: positive for - abdominal pain and nausea/vomiting Genito-Urinary ROS: no dysuria, trouble voiding, or hematuria Musculoskeletal ROS: positive for - joint pain, joint stiffness, joint swelling and muscle pain Neurological ROS: no TIA or stroke symptoms Past Medical History: Diagnosis Date GERD (gastroesophageal reflux disease) H/O abnormal cervical Papanicolaou smear History of severe dysplasia per patient, s/p LEEP and CKC per patient Past Surgical History: Procedure Laterality Date CERVICAL CONIZATION W/ LASER SECTION, LOW TRANSVERSE x 2 1988 and 1989 ENDOMETRIAL ABLATION 2016 for [facility] LEEP RIGHT OOPHORECTOMY 1996 for ectopic Family History Problem Relation Age of Onset Cancer Mother Hypertension Father Hyperlipidemia Father Heart disease Father Social History Socioeconomic History Marital status: Single Spouse name: Not on file Number of children: Not on file Years of education: Not on file Highest education level: Not on file Occupational History Not on file Social Needs Financial resource strain: Not on file Food insecurity Worry: Not on file Inability: Not on file Transportation needs Medical: Not on file Non-medical: Not on file Tobacco Use Smoking status: Current Every Day Smoker Packs/day: 1.00 Smokeless tobacco: Never Used Substance and Sexual Activity Alcohol use: Never Frequency: Never Drug use: Yes Types: Marijuana Sexual activity: Not Currently Partners: Male control/protection: Surgical Lifestyle Physical activity Days per week: Not on file Minutes per session: Not on file Stress: Not on file Relationships Social connections Talks on phone: Not on file Gets together: Not on file Attends episcopalian service: Not on file Active member of club or organization: Not on file Attends meetings of clubs or organizations: Not on file Relationship status: Not on file Other Topics Concern Not on file Social History Narrative Not on file Vitals: 09/13/20 1310 BP: 121/83 Pulse: 81 Temp: 98.4 F (36.9 C) Weight: 60.3 kg (133 lb) Height: 5' 2 Physical Exam: HEENT: Normocephalic, atraumatic, NEURO: CN II-XII grossly intact CARDIAC: regular rate & rhythm LUNGS: Clear to auscultation, no respiratory distress ABDOMEN: soft, mildly TTP RUQ, no rebound, guarding, rigidity. MUSCULOSKELETAL: ROM intact throughout EXTREMITIES: No evidence of cyanosis, clubbing or edema. Labs: WBC Date Value Ref Range Status 09/13/2020 8.30 4.50 - 11.00 K/mcL Final RBC Date Value Ref Range Status 09/13/2020 4.64 4.00 - 5.20 M/mcL Final Hemoglobin Date Value Ref Range Status 09/13/2020 13.3 12.0 - 16.0 g/dL Final Hematocrit Date Value Ref Range Status 09/13/2020 42.9 36.0 - 46.0 % Final Platelets Date Value Ref Range Status 09/13/2020 194 150 - 400 K/mcL Final Potassium Date Value Ref Range Status 09/13/2020 4.4 3.5 - 5.1 mmol/L Final Chloride Date Value Ref Range Status 09/13/2020 104 98 - 108 mmol/L Final Bicarbonate Date Value Ref Range Status 09/13/2020 28 21 - 32 mmol/L Final Anion Gap Date Value Ref Range Status 09/13/2020 13 10 - 20 mmol/L Final Glucose Date Value Ref Range Status 09/13/2020 83 65 - 99 mg/dL Final BUN Date Value Ref Range Status 09/13/2020 9 8 - 25 mg/dL Final Creatinine Date Value Ref Range Status 09/13/2020 0.75 0.40 - 1.10 mg/dL Final Albumin Date Value Ref Range Status 09/13/2020 4.3 3.2 - 5.2 g/dL Final Calcium Date Value Ref Range Status 09/13/2020 9.2 8.4 - 10.2 mg/dL Final Alkaline Phosphatase Date Value Ref Range Status 09/13/2020 81 40 - 150 U/L Final AST Date Value Ref Range Status 09/13/2020 20 0 - 45 U/L Final ALT Date Value Ref Range Status 09/13/2020 11 0 - 40 U/L Final Total Bilirubin Date Value Ref Range Status 09/13/2020 0.4 0.0 - 1.3 mg/dL Final documented in this encounter Assessments Diagnosis Epigastric pain Abdominal pain, epigastric Pelvic pain Diagnosis Pelvic pain Screen for STD (sexually transmitted disease) Screening examination for venereal disease Pap smear for cervical cancer screening Screening for malignant neoplasm of the cervix H/O abnormal cervical Papanicolaou smear Abnormal uterine bleeding (AUB) Diagnosis Left ovarian cyst- Primary Other and unspecified ovarian cyst Abnormal uterine bleeding (AUB) History of abnormal cervical Pap smear Right upper quadrant abdominal pain Diagnosis Abdominal pain, unspecified abdominal location Diagnosis Abdominal pain, unspecified abdominal location Diagnosis Left ovarian cyst Other and unspecified ovarian cyst Diagnosis Chronic cholecystitis- Primary Right upper quadrant abdominal pain Chronic cholecystitis Diagnosis Chronic cholecystitis- Primary Right upper quadrant abdominal pain Instructions * Patient Instructions* Carrie Ruvalcaba DO - 05/09/2020 4:20 PM EDT Learning About Cervical Cancer Screening What is a cervical cancer screening test? The cervix is the lower part of the uterus that opens into the vagina. Cervical cancer screening tests check the cells on the cervix for changes that could lead to cancer. Two tests can be used to screen for cervical cancer. They may be used alone or together. A Pap test. This test looks for changes in the cells of the cervix. Some of these cell changes could lead to cancer. A human papillomavirus (HPV) test. This test looks for the HPV virus. Some high-risk types of HPV can cause cell changes that could lead to cervical cancer. The HPV test may be used with the Pap test in women ages 30 and older. When should you have a screening test? If you have a cervix and are at average risk for cervical cancer, your doctor will likely suggest starting screening at age 21. Ages 21 to 29 If you're in this age group, your doctor will likely suggest that you get a Pap test. If your Pap test results are normal, you can wait 3 years to have another test. Ages 30 to 64 Screening options for this age group may include: A Pap test. If your results are normal, you can wait 3 years to have another test. An HPV test. If your results are normal, you can wait 5 years to have another test. A Pap test and an HPV test. If your results are normal, you can wait 5 years to be tested again. Ages 65 and older If you are age 65 or older, you may no longer need this screening test. Talk to your doctor. What do the results of cervical cancer screening mean? Your test results may be normal. Or the results may show minor or serious changes to the cells on your cervix. Minor changes may go away on their own, especially if you are younger than 30. You may have an abnormal test because you have an infection of the vagina or cervix or because you have low estrogen levels after menopause that are causing the cells to change. If you have a high-risk type of human papillomavirus (HPV) or cell changes that could turn into cancer, you may need more tests. The next step may be a colposcopy or treatment to remove or destroy the abnormal cells. If you have a Pap test, an HPV test, or both, your doctor will recommend a follow-up plan based on your results and your age. Follow-up care is a ledesma part of your treatment and safety. Be sure to make and go to all appointments, and call your doctor if you are having problems. It's also a good idea to know your test resultsand keep a list of the medicines you take. Where can you learn more? Log into your personal health record on https://[employer] and enter P919 in the Education box to learn more about Learning About Cervical Cancer Screening. Current as of: June 11, 2019 Content Version: 12.5 2279-6598 [employer]. Care instructions adapted under license by your healthcare professional. If you have questions about a medical condition or this instruction, always ask your healthcare professional. [employer] disclaims any warranty or liability for your use of this information. documented in this encounter Discharge Instructions * Instructions* Caleb Alvarez DO - 09/22/2020 DISCHARGE INSTRUCTIONS Activity: - No heavy lifting anything heavier than 10lbs for the next 6 weeks. - No operating a vehicle or machinery while taking narcotic pain meds. - Walking is good for you to help you heal. Diet: - Make sure you eat a well balanced diet that is high in protein. - You may use supplement shakes (Boost, Ensure, etc) to help supplement your calories or protein. - Drinking lots of water is good for you to stay hydrated. Medications: - Take your pain medication as prescribed. - You were given a prescription for Colace (stool softener), take this while you are on pain medications to prevent constipation. You may stop this medication if you have diarrhea. Incision care: - You have absorbable sutures keeping your incision closed and surgical glue covering the incision.The glue will fall off on its own in approximately 1-2 weeks. - Do not put any hydrogen peroxide on your incision. - You may use ice packs to the incision to help with swelling and pain. 20 minutes on and 20 minutes off. - Avoid soaking in water (hot tubs, bath tubs, pools, lakes) for at least 3 weeks. Call the office or seek medical attention if you have any of the following: - Persistent fever >100.4 - Purulent (green or yellow) drainage from your wound. - Your wound opens up or the sutures pull out. - Uncontrollable nausea and vomiting. - Inability to have a bowel movement for multiple days. - Uncontrollable abdominal pain. - Any other concerns. Cholecystectomy: What to Expect at Home Your Recovery After your surgery, it is normal to feel weak and tired for several days after you return home. Your belly may be swollen. If you had laparoscopic surgery, you may also have pain in your shoulder forabout 24 hours. You may have gas or need to burp a lot at first, and a few people get diarrhea. The diarrhea usually goes away in 2 to 4 weeks, but it may last longer. How quickly you recover depends on whether you had a laparoscopic or open surgery. For a laparoscopic surgery, most people can go back to work or their normal routine in 1 to 2 weeks, but it may take longer, depending on the type of work you do. For an open surgery, it will probably take 4 to 6 weeks before you get back to your normal routine. This care sheet gives you a general idea about how long it will take for you to recover. However, each person recovers at a different pace. Follow the steps below to get better as quickly as possible. How can you care for yourself at home? Activity Rest when you feel tired. Getting enough sleep will help you recover. Try to walk each day. Start out by walking a little more than you did the day before. Gradually increase the amount you walk. Walking boosts blood flow and helps prevent pneumonia and constipation. For about 4 to 6 weeks, avoid lifting anything that would make you strain. This may include a child, heavy grocery bags and milk containers, a heavy briefcase or backpack, cat litter or dog food bags, or a vacuum hand glove cleaner. No lifting anything heavier than 10lbs for the next 4 to 6 weeks. Avoid strenuous activities, such as biking, jogging, weightlifting, and aerobic exercise, until your doctor says it is okay. You may shower 24 to 48 hours after surgery, if your doctor okays it. Pat the cut (incision) dry. Do not take a bath for the first 2 weeks, or until your doctor tells you it is okay. You may drive when you are no longer taking pain medicine and can quickly move your foot from the gas pedal to the brake. You must also be able to sit comfortably for a long period of time, even if you do not plan to go far. You might get caught in traffic. For a laparoscopic surgery, most people can go back to work or their normal routine in 1 to 2 weeks, but it may take longer. For an open surgery, it will probably take 4 to 6 weeks before you get back to your normal routine. Your doctor will tell you when you can have sex again. Diet Eat smaller meals more often instead of fewer larger meals. You can eat a normal diet, but avoid eating fatty foods for about 1 month. Fatty foods include hamburger, whole milk, cheese, and many snack foods. If your stomach is upset, try bland, low-fat foods like plain rice, broiled chicken, toast,and yogurt. Drink plenty of fluids (unless your doctor tells you not to). If you have diarrhea, try avoiding spicy foods, dairy products, fatty foods, and alcohol. You can also watch to see if specific foods cause it, and stop eating them. If the diarrhea continues for more than 2 weeks, talk to your doctor. You may notice that your bowel movements are not regular right after your surgery. This is common. Try to avoid constipation and straining with bowel movements. You may want to take a fiber supplement every day. If you have not had a bowel movement after a couple of days, ask your doctor about taking a mild laxative. Medicines Your doctor will tell you if and when you can restart your medicines. He or she will also give you instructions about taking any new medicines. If you take blood thinners, such as warfarin (Coumadin), clopidogrel (Plavix), or aspirin, be sure to talk to your doctor. He or she will tell you if and when to start taking those medicines again. Make sure that you understand exactly what your doctor wants you to do. Take pain medicines exactly as directed. If the doctor gave you a prescription medicine for pain, take it as prescribed. If you are not taking a prescription pain medicine, take an ybqs-epr-tpdshuf medicine such as acetaminophen (Tylenol), ibuprofen (Advil, Motrin), or naproxen (Aleve). Read and follow all instructionson the label. Do not take two or more pain medicines at the same time unless the doctor told you to. Many pain medicines contain acetaminophen, which is Tylenol. Too much Tylenol can be harmful. If you think your pain medicine is making you sick to your stomach: Take your medicine after meals (unless your doctor tells you not to). Ask your doctor for a different pain medicine. If your doctor prescribed antibiotics, take them as directed. Do not stop taking them just because you feel better. You need to take the full course of antibiotics. Incision care If you have strips of tape on the incision, leave the tape on for a week or until it falls off. If you have skin glue, leave it in place. It will fall off on its own in a few weeks. After 24 to 48 hours, wash the area daily with warm, soapy water, and pat it dry. Keep the area clean and dry. You may cover it with a gauze bandage if it weeps or rubs against clothing. Change the bandage every day. Ice To reduce swelling and pain, put ice or a cold pack on your belly for 10 to 20 minutes at a time. Do this every 1 to 2 hours. Put a thin cloth between the ice and your skin. Follow-up care is a ledesma part of your treatment and safety. Be sure to make and go to all appointments, and call your doctor if you are having problems. It's also a good idea to know your test resultsand keep a list of the medicines you take. When should you call for help? Call 911 anytime you think you may need emergency care. For example, call if: You passed out (lost consciousness). You have severe trouble breathing. You have sudden chest pain and shortness of breath, or you cough up blood. Call your doctor now or seek immediate medical care if: You are sick to your stomach and cannot drink fluids. You have pain that does not get better when you take your pain medicine. You have signs of infection, such as: Increased pain, swelling, warmth, or redness. Red streaks leading from the incision. Pus draining from the incision. Swollen lymph nodes in your neck, armpits, or groin. A fever. Your urine turns dark brown or your stool is light-colored or bassem-colored. Your skin or the whites of your eyes turn yellow. Bright red blood has soaked through a large bandage over your incision. You have signs of a blood clot, such as: Pain in your calf, back of knee, thigh, or groin. Redness and swelling in your leg or groin. You have trouble passing urine or stool, especially if you have mild pain or swelling in your lowerbelly. Watch closely for any changes in your health, and be sure to contact your doctor if: You had a laparoscopic surgery and your shoulder pain lasts more than 24 hours. You do not have a bowel movement after taking a laxative. Where can you learn more? Log into your personal health record on https://[employer] and enter F357 in the Education box to learn more about Cholecystectomy: What to Expect at Home. Current as of: February 21, 2015 Content Version: 10.6 5016-4003 [employer]. Care instructions adapted under license by your healthcare professional. If you have questions about a medical condition or this instruction, always ask your healthcare professional. [employer] disclaims any warranty or liability for your use of this information. documented in this encounter Additional Source Comments INFORMATION SOURCE (unrecogn ized section and content) DATE CREATED AUTHOR AUTHOR'S ORGANIZ ATION 04/10/2018 [facility] DATE CREATED AUTHOR AUTHOR'S ORGANIZ ATION 04/10/2018 [facility] DATE CREATED AUTHOR AUTHOR'S ORGANIZ ATION 04/16/2018 [facility] DATE CREATED AUTHOR AUTHOR'S ORGANIZ ATION 07/02/2019 [facility] DATE CREATED AUTHOR AUTHOR'S ORGANIZ ATION 07/18/2020 [facility] DATE CREATED AUTHOR AUTHOR'S ORGANIZ ATION 09/19/2020 [facility] DATE CREATED AUTHOR AUTHOR'S ORGANIZ ATION 10/06/2020 [facility] DATE CREATED AUTHOR AUTHOR'S ORGANIZ ATION 10/06/2020 [facility] DATE CREATED AUTHOR AUTHOR'S ORGANIZ ATION 11/14/2021 [facility] DATE CREATED AUTHOR AUTHOR'S ORGANIZ ATION 07/27/2023 [facility] Reason for Visit (unrecogniz ed section and content) Reason Comments Pelvic Pain Lower abdomen and pe lvic pressure for past 6 months. Feels like a tearing insude. Status Reason Specialty Diagnoses / Procedures Referred By Contact Referred To Contact Closed Obstetrics and Gynecology Diagnoses Pelvic pain Filippo Corral, DO [address] [place] [address] [facility] [address] [place] [address] Reason Comments Follow-up Follow up pelvic claudio n. No change to pain. Unable to eat due to pain. Reason Comments Abdominal Pain x several months Status Reason Specialty Diagnoses / Procedures Referred By Contact Referred To Contact Closed Central Scheduling Diagnoses Abdominal pain, unspecified abdominal location Procedures CT Abdomen Without Contrast Filippo Corral, DO [address] [place] [address] Central Scheduling [address] [place] [address] Status Reason Specialty Diagnoses / Procedures Referred By Contact Referred To Contact Pending Review Central Scheduling Diagnoses Left ovarian cyst Procedures US Pelvic Transabdominal and Transvaginal Carrie Ruvalcaba, DO [address] [place] [address] Central Scheduling [address] [place] [address] Reason Comments Consult RUQ abd pain associa te with nausea and vomiting. Status Reason Specialty Diagnoses / Procedures Referred By Contact Referred To Contact Closed General Surgery Diagnoses Right upper quadrant abdominal pain Filippo Corral, DO [address] [place] [address] Veronica Burns, [address] [facility] [address] [place] [address] Status Reason Specialty Diagnoses / Procedures Referre d By Contact Referred To Contact Diagnoses Right upper quadrant abdominal pain Chronic cholecystitis Right upper quadrant abdominal pain [R10.11] Chronic cholecystitis [K81.1] Procedures n Veronica Burns, [address] [facility] [address] [place] [address] Assessment & Plan Note - Filippo Corral, - 04/25/2020 12:45 PM EDTAssessment & Plan Note - Filippo Corral DO - 04/25/2020 12:43 PM EDT Miscellaneous Notes (unrecog nized section and content) Associated Problem(s): Epigastric pain Suspected recurrent GERD, but cannot rule out cholecystitis. Check labs today. Start omeprazole. Reevaluate at follow-up. Associated Problem(s): Pelvic pain Cannot rule out ovarian cyst, fibroid, or sequela from prior high-grade cervical dysplasia/gynecologic procedures. Cannot rule out ventral hernia, diverticular disease, or other colitis. Patient is due for screening colonoscopy, but she wishes to wait on GI referral at this time. She will reestablish care with gynecology for continued work-up. documented in this encounter Associated Problem(s): Abdominal pain Migrating severe intermittent abdominal pain including epigastric, right upper quadrant, right lower quadrant, and left lower quadrant ongoing for several months, associated with bulging and acute pain. Described characteristics consistent with multiple sites of ventral hernia. Differential diagnosis also includes IBS, IBD, and endometriosis. Not improved completely with omeprazole. Recently nondiagnostic pelvic ultrasound by pickling tank operator. Recently normal CMP, lipase, and CBC. We will obtain noncontrast CT scan of the abdomen and pelvis to rule out structural abnormality. GI versus general surgery referral will be considered pending imaging results. documented in this encounter Associated Problem(s): Chronic cholecystitis CT AP without any abnormality other than gallstones. She does have a large amount of gallstones. I would recommend Lx cholecystectomy for her. Plan to look for occult hernias not seen on CT at time of laparoscopy. I discussed with patient post-op narcotic regimen, the patient will receive 2 days of Percocet 5/325 mg for 8 pills total alternating with Ibuprofen. After this is complete, we will switch to a regimen of Tylenol and Ibuprofen. Patient will be on lifting restrictions post-operatively, nothing >15 lbs for 4 weeks. After that time he or she will be able to gradually start lifting more than that. documented in this encounter Name: Francesca Temple CSN: [id number] : 1970 DATE: 09/22/20 OPERATIVE REPORT SURGEON Veronica Burns DO CORE DRILLING SUPERVISOR 1. Erika Loja DO, PGY-5 2. Laurie Jones DO, PGY-2 PRE-OPERATIVE DIAGNOSIS Right upper quadrant abdominal pain [R10.11] Chronic cholecystitis [K81.1] POST-OPERATIVE DIAGNOSIS Right upper quadrant abdominal pain [R10.11] Chronic cholecystitis [K81.1] PROCEDURE Laparoscopic cholecystectomy INDICATIONS FOR PROCEDURE This is a 50 y.o. year old female who presented with right upper quadrant pain. Symptoms were consistent with biliary colic and we discussed surgical removal of the gallbladder. I discussed all risks of surgery with the patient pre-operatively including reaction to anesthesia, pulmonary complications, bleeding, infections, injury to nearby structures, need to convert to open procedure. The patient understood these risks and agreed with surgery. DESCRIPTION OF PROCEDURE The patient was taken to Operating Room, identified as Francesca Temple and the procedure verified as Laparoscopic Cholecystectomy. A Time Out was held and the above information confirmed. Prior to the induction of general anesthesia, antibiotic prophylaxis was administered. General endotracheal anesthesia was then administered and tolerated well. After the induction, the abdomen was prepped in the usual sterile fashion. The patient was positioned in the supine position, along with some reverse Trendelenburg. Local anesthetic 1% lidocaine w/ epi 1:100,000 mixed 50:50 with 0.25% Marcaine was injected into the skin near the umbilicus and an incision made. The midline fascia was incised and the Naa technique was used to introduce a 11 mm port under direct vision. It was secured with a figure of eight Vicryl suture placed in the usual fashion. Pneumoperitoneum was then created with CO2 and tolerated well without any adverse changes in the patient's vital signs. Additional 5mm trocars were introduced under direct vision in the right subcostal area. All skin incisions were infiltrated with a local anesthetic agent before making the incision and placing the trocars. The gallbladder was identified, the fundus grasped and retracted cephalad. Adhesions were lysed bluntly and with the electrocautery where indicated, taking care not to injure any adjacent organs or viscus. The infundibulum was grasped and retracted laterally, exposing the peritoneum overlying the triangle of Calot. A critical view was obtained. This was then divided and exposed in a blunt fashion. The cystic duct was clearly identified and bluntly dissected circumferentially. The junctions of the gallbladder, cystic duct and common bile duct were clearly identified prior to the division of any linear structure. The cystic duct was then triply ligated with surgical clips on the patient side and singly clipped on the gallbladder side and divided. The cystic artery was identified, dissected free, ligated with clips and divided as well. The gallbladder was dissected from the liver bed in retrograde fashion with the electrocautery. The gallbladder was removed. The liver bed was irrigated and inspected. Hemostasis was achieved with the electrocautery. Copious irrigation was utilized and was repeatedly aspirated until clear all particulate matter. Pneumoperitoneum was completely reduced after viewing removal of the trocars under direct vision. The wound was thoroughly irrigated and the fascia was then closed with a figure of eight 0 vicryl suture; the skin was then closed with 4-0 Monocryl and glue dressing was applied. Instrument, sponge, and needle counts were correct at closure and at the conclusion of the case. I was present for all portions of the surgery. GROSS FINDINGS Chronic cholecystitis with Cholelithiasis Brief Post Operative Note Patient Name: Francesca Temple : 1970 (50 y.o.) Date of Service: 09/22/2020 CSN: [id number] Procedure(s): Laparoscopic cholecystectomy Pre-Operative Diagnoses: * Right upper quadrant abdominal pain [R10.11] Chronic cholecystitis [K81.1] Post-Operative Diagnoses: * Right upper quadrant abdominal pain [R10.11] * Chronic cholecystitis [K81.1] Surgeon(s) and Role: * Veronica Burns DO - Primary * Erika Loja DO - Resident - Assisting * Laurie Jones DO - Resident - Assisting Anesthesiologist: Rudi Mai MD; Erin Nam DO Manager Of Internal: Jayant Dean DO; Akbar Rivers DO Neighborhood Conservation Officer: Suyapa Raya RN Neighborhood Conservation Officer Relief: Yuli Saldana RN Scrub Person: Maris Kilgore RN Operative findings: Chronic inflammation of the gallbladder with stones Intra and immediate post-operative complications: None Type of anesthesia used: General Estimated blood loss: 30 mL Estimated urine output: Refer to surgical log Specimen(s): ID Type Source Tests Collected by Time Destination A : Gallbladder and contents Tissue Gallbladder TISSUE EXAM Veronica Burns DO 09/22/20201811 Implant(s): * No implants in log * Drain(s): * No LDAs found * Wound(s): Wound 09/22/20 Surgical Wound Abdomen (umbilicus) (Active) Wound 09/22/20 Surgical Wound Abdomen (Active) Wound 09/22/20 Surgical Wound Abdomen RUQ (Active) Wound 09/22/20 Surgical Wound Abdomen (Active) Veronica Burns DO 09/22/2020 6:17 PM documented in this encounter Source Comments (unrecognize d section and content) In the event this informatio n is protected by the Federal Confidentiality of Alcohol and Drug Abuse Patient Records regulations: The Federal rules restrict any use of the information to criminally investigate or prosecute any alcohol or drug abuse patient.[facility] Veronica Burns DO - 09/22/2020 4:20 PM Veronica Rust DO - 09/14/2020 9:02 AM EST H&P Notes (unrecognized sect ion and content) INTERVAL HISTORY AND PHYSICAL Patient Name: Francesca Temple Admit Date: MR #: [id number] : 1970 The H&P has been reviewed and the patient has been examined. I concur with the findings of the H&P. There are no significant changes. It is appropriate to proceed with the planned procedure. Veronica Burns DO 09/22/2020 4:20 PM [facility] General Surgery [facility] [phone] History and Physical Exam: Patient: Francesca Temple CSN: [id number] : 1970 Date: 09/14/20 Reason for Visit: Chief Complaint Patient presents with Consult RUQ abd pain associate with nausea and vomiting. Assessment and Plan: Problem List Chronic cholecystitis - Primary CT AP without any abnormality other than gallstones. She does have a large amount of gallstones. I would recommend Lx cholecystectomy for her. Plan to look for occult hernias not seen on CT at time of laparoscopy. I discussed with patient post-op narcotic regimen, the patient will receive 2 days of Percocet 5/325 mg for 8 pills total alternating with Ibuprofen. After this is complete, we will switch to a regimen of Tylenol and Ibuprofen. Patient will be on lifting restrictions post-operatively, nothing >15 lbs for 4 weeks. After that time he or she will be able to gradually start lifting more than that. Relevant Orders Case Request Operating Room: Laparoscopic cholecystectomy Abdominal pain Relevant Orders Case Request Operating Room: Laparoscopic cholecystectomy CBC (Completed) Comprehensive Metabolic Panel (Completed) All risks and benefits of surgery have been explained to the patient in detail including risks of stroke, heart attack, adverse reaction to anesthesia, risk of bleeding, infection, injury to nearby structures. I spent 30 minutes with this patient, with more than 50% of the time devoted to discussing symptoms, examination, data review and counseling the patient about diagnosis, treatment approach and prognosis. Veronica Burns DO History of Present Illness: Francesca Temple is a 50 y.o. y/o female who presents to the office today with right upper quadrant abdominal pain. She states she occasionally has pain in the right upper quadrant especially when she coughs hard and then she has severe pain that doubles her over in the right upper abdomen. She states this has been going on for 2 to 3 years and she will have to press on the area and stretch her to go away. 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 She also states she does not have an appetite for the same period of time, has frequent pain after eating. Review of Systems: - General ROS: negative for - chills, fatigue or fever ENT ROS: negative for - headaches or visual changes Hematological and Lymphatic ROS: negative for - bleeding problems or blood clots Respiratory ROS: no cough, shortness of breath, or wheezing Cardiovascular ROS: no chest pain or dyspnea on exertion Gastrointestinal ROS: positive for - abdominal pain and nausea/vomiting Genito-Urinary ROS: no dysuria, trouble voiding, or hematuria Musculoskeletal ROS: positive for - joint pain, joint stiffness, joint swelling and muscle pain Neurological ROS: no TIA or stroke symptoms Past Medical History: Diagnosis Date GERD (gastroesophageal reflux disease) H/O abnormal cervical Papanicolaou smear History of severe dysplasia per patient, s/p LEEP and CKC per patient Past Surgical History: Procedure Laterality Date CERVICAL CONIZATION W/ LASER SECTION, LOW TRANSVERSE x 2 1988 and 1989 ENDOMETRIAL ABLATION 2017 for [facility] LEEP RIGHT OOPHORECTOMY 1996 for ectopic Family History Problem Relation Age of Onset Cancer Mother Hypertension Father Hyperlipidemia Father Heart disease Father Social History Socioeconomic History Marital status: Single Spouse name: Not on file Number of children: Not on file Years of education: Not on file Highest education level: Not on file Occupational History Not on file Social Needs Financial resource strain: Not on file Food insecurity Worry: Not on file Inability: Not on file Transportation needs Medical: Not on file Non-medical: Not on file Tobacco Use Smoking status: Current Every Day Smoker Packs/day: 1.00 Smokeless tobacco: Never Used Substance and Sexual Activity Alcohol use: Never Frequency: Never Drug use: Yes Types: Marijuana Sexual activity: Not Currently Partners: Male control/protection: Surgical Lifestyle Physical activity Days per week: Not on file Minutes per session: Not on file Stress: Not on file Relationships Social connections Talks on phone: Not on file Gets together: Not on file Attends episcopalian service: Not on file Active member of club or organization: Not on file Attends meetings of clubs or organizations: Not on file Relationship status: Not on file Other Topics Concern Not on file Social History Narrative Not on file Vitals: 09/13/20 1310 BP: 121/83 Pulse: 81 Temp: 98.4 F (36.9 C) Weight: 60.3 kg (133 lb) Height: 5' 2 Physical Exam: HEENT: Normocephalic, atraumatic, NEURO: CN II-XII grossly intact CARDIAC: regular rate & rhythm LUNGS: Clear to auscultation, no respiratory distress ABDOMEN: soft, mildly TTP RUQ, no rebound, guarding, rigidity. MUSCULOSKELETAL: ROM intact throughout EXTREMITIES: No evidence of cyanosis, clubbing or edema. Labs: WBC Date Value Ref Range Status 09/13/2020 8.30 4.50 - 11.00 K/mcL Final RBC Date Value Ref Range Status 09/13/2020 4.64 4.00 - 5.20 M/mcL Final Hemoglobin Date Value Ref Range Status 09/13/2020 13.3 12.0 - 16.0 g/dL Final Hematocrit Date Value Ref Range Status 09/13/2020 42.9 36.0 - 46.0 % Final Platelets Date Value Ref Range Status 09/13/2020 194 150 - 400 K/mcL Final Potassium Date Value Ref Range Status 09/13/2020 4.4 3.5 - 5.1 mmol/L Final Chloride Date Value Ref Range Status 09/13/2020 104 98 - 108 mmol/L Final Bicarbonate Date Value Ref Range Status 09/13/2020 28 21 - 32 mmol/L Final Anion Gap Date Value Ref Range Status 09/13/2020 13 10 - 20 mmol/L Final Glucose Date Value Ref Range Status 09/13/2020 83 65 - 99 mg/dL Final BUN Date Value Ref Range Status 09/13/2020 9 8 - 25 mg/dL Final Creatinine Date Value Ref Range Status 09/13/2020 0.75 0.40 - 1.10 mg/dL Final Albumin Date Value Ref Range Status 09/13/2020 4.3 3.2 - 5.2 g/dL Final Calcium Date Value Ref Range Status 09/13/2020 9.2 8.4 - 10.2 mg/dL Final Alkaline Phosphatase Date Value Ref Range Status 09/13/2020 81 40 - 150 U/L Final AST Date Value Ref Range Status 09/13/2020 20 0 - 45 U/L Final ALT Date Value Ref Range Status 09/13/2020 11 0 - 40 U/L Final Total Bilirubin Date Value Ref Range Status 09/13/2020 0.4 0.0 - 1.3 mg/dL Final documented in this encounter Sis Simons, GIORGIO - 09/22/2020 2:47 PM EST Nursing Notes (unrecognized section and content) Pt with pcn sensitivity resulting in gi cramping and hot flashes. Dr. Burns states ok to proceed with ancef documented in this encounter FOR RECORDS PERTAINING TO PATIENTS WHO ARE OR HAVE BEEN ENROLLED IN A CHEMICAL DEPENDENCY/SUBSTANCEABUSE PROGRAM, SOME INFORMATION MAY BE OMITTED. This clinical summary was aggregated from multiple sources. Caution should be exercised in using it in the provision of clinical care. This summary normalizes information from multiple sources, and as a consequence, information in this document may materially change the coding, format and clinical context of patient data. In addition, data may be omitted in some cases. CLINICAL DECISIONS SHOULD BE BASED ON THE PRIMARY CLINICAL RECORDS. [employer] provides no warranty or guarantee of the accuracy or completeness of information in this document.
== END | disposition home or self-care (01) ==
LOC: MRI 16:18
PROVIDERS: Referring Provider Psychiatry & Neurology Neurology; Visit Provider Psychiatry & Neurology Neurology
DX: G43.109 Migraine with aura, not intractable, without status migrainosus (principal)
CPT/HCPCS: 70551

== ENCOUNTER → 2024-07-15 | Outpatient (CLI) | payer OTHER, SELFPAY ==
--- NOTE | 2024-07-15 15:41 | MRI_ITS ---
EXAM: MR CERVICAL SPINE WITHOUT INTRAVENOUS CONTRAST CLINICAL INDICATION: neck pain TECHNIQUE: Multiplanar and multisequence MR images of the cervical spine without intravenous contrast were performed. COMPARISON: Cervical spine radiographs, 12/09/2023. FINDINGS: VERTEBRAE: Multilevel endplate osteophytosis. Normal cervical lordosis. No fracture or traumatic subluxation. Normal craniocervical junction and C1-C2 articulation. Mild Modic type I endplate signal changes inferiorly at C5. SPINAL CORD: Unremarkable in signal and morphology. SOFT TISSUES: No significant abnormality. No prevertebral soft tissue swelling. LYMPH NODES: No significant abnormality. There is no cervical adenopathy. SINUSES: Trace mucosal thickening in the paranasal sinuses. DISCS/SPINAL CANAL/NEURAL FORAMINA: C2-C3: No significant abnormality. No disc herniation, spinal canal stenosis, or neural foraminal narrowing. C3-C4: Right central to foraminal disc herniation and right greater than left facet and uncovertebral joint arthrosis. Mild right neural foraminal narrowing and mild spinal canal stenosis. C4-C5: Small central disc herniation and mild bilateral facet and uncovertebral joint arthrosis. Mild spinal canal stenosis. No significant neural foraminal narrowing. C5-C6: Disc height loss and desiccation. Facet, uncovertebral joint, and endplate osteophytosis. Disc bulge. Mild to moderate right and mild left neural foraminal narrowing. Mild spinal canal stenosis. C6-C7: Disc height loss and disc desiccation. Facet, endplate, and uncovertebral joint arthrosis. Mild disc bulge. Moderate bilateral neural foraminal narrowing and mild spinal canal stenosis. C7-T1: No significant abnormality. No disc herniation, spinal canal stenosis, or neural foraminal narrowing. MRI/Spine Cervical (Routine) IMPRESSION: Multilevel degenerative changes resulting in mild multilevel spinal canal stenosis and mild to moderate multilevel neural foraminal narrowing. No spinal cord signal abnormality or significant mass effect upon the spinal cord. Electronically Signed: Kashif Caban DO at 21:16 EDT ,
== END | disposition home or self-care (01) ==
LOC: MRI 15:33
PROVIDERS: Referring Provider Psychiatry & Neurology Neurology; Visit Provider Psychiatry & Neurology Neurology
DX: M54.2 Cervicalgia (principal)
CPT/HCPCS: 72141

== ENCOUNTER → 2025-02-02 | Outpatient (CLI) | payer MEDICAID, SELFPAY ==
[2025-02-02 18:29] LABS: Absolute Lymphocyte Count 2.41 X10^3/uL (0.83-4.51); Absolute Neutrophil Count 4.2 X10^3/uL (2.0-7.7); Basophil# 0.06 X10^3/uL; Basophil% 0.8 % (0-1); Eosinophil# 0.15 X10^3/uL; Eosinophils% 2.1 % (0-5); Hemoglobin 12.4 g/dL (12.0-15.0); Lymphocyte # 2.41 X10^3/ul (0.83-4.51); Lymphocyte % 33.1 % (19-41); Mean Corp Hgb Conc 31.8 g/dL (32-36); Mean Corpuscular Hgb 28.1 pg (27.0-32.0); Mean Corpuscular Volume 88.2 fL (81-99); Mean Platelet Vol. 10.8 fl (6.2-12.0); Monocyte# 0.48 X10^3/uL; Monocyte% 6.6 % (0-10); NRBC Flagged by Analyzer 0 % (0-5); Neutrophil # 4.16 X10^3/uL (2.7-7.7); Neutrophil % 57.1 % (47-70); Platelet Count 216 K/mm3 (150-450); RBC Distribution Width CV 13.5 % (11.6-14.6); RBC Distribution Width SD 44.2 fl (35.1-43.9); Red Blood Count 4.42 M/mm3 (4.2-5.4); White Blood Count 7.3 K/mm3 (4.4-11.0)
[2025-02-02 19:20] LABS: Erythrocyte Sedimentation Rate 12 mm/hr (0-30)
[2025-02-02 20:09] LABS: ALB/GLOB Ratio 1.4 RATIO (0.9-2.4); AST(SGOT) 21 U/L (<=31); Alanine Aminotransfer ALT/SGPT 14 U/L (<=34); Albumin, Serum 4.1 g/dL (3.5-5.0); Alkaline Phosphatase 77 U/L (35-104); Anion Gap 10 (5-15); BUN 11 mg/dL (4-19); BUN/Creat Ratio 10.3 RATIO (10-20); Calcium,Total 9.6 mg/dL (7.6-11.0); Chloride 106 mmol/L (98-108); Creatinine, Serum 1.02 mg/dL (0.70-1.20); EST Glomerular Filtration Rate 65 (>60); Globulin 2.9 g/dL (2.2-4.2); Glucose 87 mg/dL (70-99); Potassium 4.1 mmol/L (3.3-5.1); Protein, Total 7.1 g/dL (5.9-8.4); Sodium Level 139 mmol/L (133-145); Thyroid Stim Hormone (TSH) 0.624 uIU/mL (0.300-4.200); Total Bilirubin 0.35 mg/dL (0.00-1.30); Vitamin B12 349 pg/mL (180-914)
[2025-02-02 20:32] LABS: CRP 3.17 mg/L (0.0-3.0); Rheumatoid Factor < 10.0 IU/mL (<15)
[2025-02-07 02:06] LABS: Folate, RBC (Hct) Test 40.6 % (34.0-46.6); Folates, RBC Test 1167 ng/mL (>498); Vitamin B1, Thiamine 86.2 nmol/L (66.5-200.0)
[2025-02-08 12:08] LABS: ANTINUCLEAR ANTIBODIES DIRECT Negative (Negative); Vitamin D 1,25-Dihydroxy 46.7 pg/mL (24.8-81.5)
== END | disposition home or self-care (01) ==
LOC: MTLAB 15:48
PROVIDERS: Referring Provider Psychiatry & Neurology Neurology; Visit Provider Psychiatry & Neurology Neurology
DX: R53.83 Other fatigue (principal); M25.50 Pain in unspecified joint
CPT/HCPCS: 36415; 80053; 82607; 82652; 82747; 84425; 84443; 85014; 85025; 85652; 86038; 86140; 86225; 86235; 86431

== ENCOUNTER → 2025-05-13 | Outpatient (CLI) | payer MEDICAID, SELFPAY ==
[2025-05-13 18:22] LABS: Magnesium 2.1 mg/dL (1.5-2.2)
== END | disposition home or self-care (01) ==
LOC: MTLAB 15:45
PROVIDERS: Referring Provider Psychiatry & Neurology Neurology; Visit Provider Psychiatry & Neurology Neurology
DX: G62.9 Polyneuropathy, unspecified (principal)
CPT/HCPCS: 36415; 83735; 83883

== ENCOUNTER → 2025-06-15 | Outpatient (CLI) | payer MEDICAID, SELFPAY ==
--- NOTE | 2025-06-15 15:05 | NEURO ---
NCS and/or EMG Patient Report Ordering Doctor: Escobar Brown DATE OF SERVICE: 06/15/25 Clinical Summary: 55 year old female patient with symptoms of numbness in both upper extremities. Nerve Conduction Studies Summary: The right ulnar-D5 SNAP distal latency was prolonged. Otherwise, nerve conduction studies performed in the bilateral upper extremities were within normal ranges. Needle Examination Summary: Needle examination of select muscles of the bilateral upper extremities was normal. Impression: This is a normal bilateral upper extremity study. There is no electrodiagnostic evidence of right/left median mononeuropathies, ulnar neuropathies, or cervical radiculopathies. Multi Select Codes Neurology Neurology Interp Codes: 54696-96 Musc test done w/n test comp (interp) (2) and 14999-53 Nrv cndj test 13/> studies (interp)
== END | disposition home or self-care (01) ==
LOC: PSN 13:41
PROVIDERS: Referring Provider Psychiatry & Neurology Neurology; Visit Provider Psychiatry & Neurology Neurology
DX: R20.2 Paresthesia of skin (principal); M54.2 Cervicalgia; G56.22 Lesion of ulnar nerve, left upper limb
CPT/HCPCS: 95886; 95913

== ENCOUNTER → 2025-06-23 | Outpatient (CLI) | payer MEDICAID, SELFPAY ==
--- NOTE | 2025-06-23 15:20 | NEURO_ITS ---
NCS and/or EMG Patient Report Ordering Doctor: Escobar Brown DATE OF SERVICE: 06/23/25 Francesca presents with complaints of numbness and tingling in the legs. Electrodiagnostic findings: Normal peroneal and tibial motor studies. Normal tibial and peroneal F?waves. H?reflex within normal limits bilaterally. Pr olonged sural latency is noted bilaterally. Prolonged right superficial peroneal latency with diminished conduction velocity. Needle EMG testing was performed the lower limbs. All muscles tested showed no evidence of denervation with normal motor unit action potentials. Electrodiagnostic impression: This is an abnormal study. 1. 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 2. No electrodiagnostic evidence is noted for lumbosacral radiculopathy Multi Select Codes Neurology Neurology Interp Codes: 17428-08 Musc test done w/n test comp (interp) (2) and 09261-14 Nrv cndj test 11-12 studies (interp)
== END | disposition home or self-care (01) ==
LOC: PSN 08:38
PROVIDERS: Referring Provider Psychiatry & Neurology Neurology; Visit Provider Psychiatry & Neurology Neurology
DX: R20.2 Paresthesia of skin (principal); M54.50 Low back pain, unspecified
CPT/HCPCS: 95886; 95912

== ENCOUNTER → 2025-09-29 | Outpatient (CLI) | payer MEDICAID, SELFPAY ==
--- NOTE | 2025-09-29 14:31 | BD_ITS ---
PROCEDURE: DEXA BONE DENSITY STUDY 09/29/2025 REASON FOR EXAM: F, age 55 y/o . Postmenopausal. TECHNIQUE: Procedure Code: BDDBD Modality: DX Procedure: DEXA BONE DENSITY STUDY COMPARISON: None FINDINGS: BMD and T-SCORES Lumbar spine: 0.838 g/cm2, T-score -2.4 Levels: L1 through L4 Left femoral neck: 0.583 g/cm2, T-score -2.4 Femoral neck comparison data not recommended for monitoring change. Left total hip: 0.757 g/cm2, T-score -1.5 Right femoral neck: 0.567 g/cm2, T-score -2.5 Femoral neck comparison data not recommended for monitoring change. Right total hip: 0.733 g/cm2, T-score -1.7 The World Health Organization has defined the following categories based on bone density: Normal bone density: T-score equal to or greater than -1.0 Osteopenia: T-score between -1.0 and -2.5 Osteoporosis: T-score equal to or less than -2.5 FRAX (or Comparable) Fracture Risk Assessment: 10 Year Probability of Fracture: Major Osteoporotic Fracture: 8.9% Hip Fracture: 2.4% (Note: FRAX is not to be reported in setting of normal range bone density, osteoporosis on DEXA, known history of osteoporosis, prior osteoporotic hip or vertebral fracture, or for any patient undergoing pharmacological treatment for bone loss.) The National Osteoporosis Foundation (NOF) recommends pharmacological treatment for patients with a FRAX 10-year risk of 3% or higher for a hip fracture, or 20% or higher for a major osteoporotic fracture, to prevent osteoporosis and reduce fracture risk. The patient does meet the pharmacological treatment recommendations for prevention of osteoporosis. BD/Dexa Bone Density Study IMPRESSION: OSTEOPENIA. Recommend follow-up as clinically warranted. Reading Location: [place] [id number]
[2025-09-29 15:24] LABS: Hematocrit 40.3 % (37-47); Hemoglobin 12.6 g/dL (12.0-15.0); Mean Corp Hgb Conc 31.3 g/dL (32-36); Mean Corpuscular Volume 89.2 fL (81-99); Mean Platelet Vol. 10.7 fl (6.2-12.0); Platelet Count 210 K/mm3 (150-450); RBC Distribution Width CV 13.2 % (11.6-14.6); RBC Distribution Width SD 43.5 fl (35.1-43.9); Red Blood Count 4.52 M/mm3 (4.2-5.4); White Blood Count 7.1 K/mm3 (4.4-11.0)
[2025-09-29 15:57] LABS: AST(SGOT) 20 U/L (<=31); Alanine Aminotransfer ALT/SGPT 10 U/L (<=34); Albumin, Serum 4.3 g/dL (3.5-5.0); Alkaline Phosphatase 75 U/L (35-104); Anion Gap 12 (5-15); BUN 9 mg/dL (4-19); BUN/Creat Ratio 10.1 RATIO (10-20); Calcium,Total 9.5 mg/dL (7.6-11.0); Carbon Dioxide 24.6 mmol/L (21.0-32.0); Chloride 104 mmol/L (98-108); Globulin 2.8 g/dL (2.2-4.2); Glucose 100 mg/dL (70-99); Potassium 4.1 mmol/L (3.3-5.1); Vitamin B12 305 pg/mL (180-914)
[2025-10-04 12:08] LABS: Vitamin D 1,25-Dihydroxy 44.4 pg/mL (24.8-81.5)
[2025-10-07 02:07] LABS: Folate, Hemolysate Test 415.0 ng/mL (Not Estab.); Folate, RBC (Hct) Test 40.1 % (34.0-46.6); Folates, RBC Test 1035 ng/mL (>498); VITAMIN B6 4.8 ug/L (3.4-65.2); Vitamin B1, Thiamine 90.1 nmol/L (66.5-200.0)
== END | disposition home or self-care (01) ==
LOC: OPBD 14:28
PROVIDERS: Referring Provider Psychiatry & Neurology Neurology; Visit Provider Psychiatry & Neurology Neurology
DX: Z13.820 Encounter for screening for osteoporosis (principal); Z78.0 Asymptomatic menopausal state; G62.9 Polyneuropathy, unspecified
CPT/HCPCS: 36415; 77080; 80053; 82607; 82652; 82747; 84207; 84425; 84443; 85014; 85027